=== PATIENT | female | born 1955 | race Caucasian/White ===

== ENCOUNTER 2019-09-28 07:05 | Day surgery (SDC) | payer OTHER, SELFPAY ==
[2019-09-26 14:53] VITALS: BMI 29.5
[2019-09-28] VITALS (7 sets, daily range): BP systolic 114–125; BP diastolic 62–78; PULSE 73–84; RESP 10–19; TEMP 36.1–36.7; O2SAT 93–98; BMI 29.5
[2019-09-28] MEDS: LACTATED RINGERS 1,000 ML 100 ML IV (08:13)
--- NOTE | 2019-09-28 09:01 | P.OP_ITS ---
Operative Date/Time/Diagnoses Date of procedure: 09/28/19 Time of procedure: 09:01 Pre-op diagnosis: Left foot hallux abductovalgus with bunion Post-op diagnosis: same Procedure & Clinicians Procedure: Left foot bunionectomy with distal metatarsal osteotomy Same procedure as scheduled: Yes Indications: Painful left foot bunion. Conservative measures failed to alleviate her pain and she wished to have surgical intervention this time. We spoke of the risks, potential complications, as well as expected outcomes. Consent was signed, no contraindication to the procedures at this time. Surgeon: Adalgisa Mckee Click Yes if Unassisted: Yes Anesthesia Type: General Operative Notes Closure Type: primary Specimen(s): none sent Prosthetic devices, grafts, tissues, transplants, or devices: [place] 3.5 mm partially-threaded 26mm screw Estimated Blood Loss (mL): 20 Blood products transfused: none Tourniquet time (min): 64 Procedure in detail: The patient was brought to the operating room and placed on the operating table in the supine position. The tourniquet was placed about the left ankle. Well padded appropriately aligned. After induction of general anesthesia the foot and ankle were prepped and draped in the usual aseptic manner. The tourniquet was inflated. Incision was made over the 1st metatarsal phalangeal joint. The incision was deepened through subcutaneous tissues being careful to identify and retract all vital neurovascular structures. All bleeders were cauterized and ligated as necessary. A medial capsulotomy was performed to the first metatarsophalangeal joint exposing the enlarged medial eminence. Of note the metatarsal head showed some linear wearing of cartilage surface medially, but the majority of this will have been resected with the medial eminence. The saw was used to resect the medial eminence. A saw was used to create a chevron-type osteotomy medial to lateral across the first metatarsal head/neck. The head was shifted and respositioned to reduce the intermetatarsal angle. Temporary fixation was used and using standard AO technique, a drill then 3.5mm cortical screw was placed across the osteotomy. I was not able to achieve proper bite and found that there was a small area of the bone near the marrow that enlarged that hole, and therefore not allowing purchase. Bone was clean, no necrosis, suspect weak area around the central marrow corridor. Next the guide wire was redirected and using the same technique, this fixation purchased well and was strong. Temporary fixation was then removed. This was reviewed on C-arm showing good placement and closure of the osteotomy. A saw was used to resect the medial first metatarsal shaft redundant overhang. The area was irrigated with copious amounts normal sterile saline. Once this was loaded it would appear that there did not need to be a phalangeal osteotomy and instead capsule balancing techniques with the soft tissue were appropriate. The great toe was placed in linear alignment and the medial first metata rsophalangeal joint capsule was resected and closed with Vicryl. The tourniquet was deflated and a prompt hyperemic response was seen in the foot. Deep and subcutaneous closure was closed performed with Vicryl and Nylon suture to the skin. The foot was dressed with a lightly compressive sterile dressing and splint in alignment. Patient was then placed in a postoperative shoe and transferred to PACU with vital signs stable. Complications: none Post-operative Condition: stable Disposition: PACU Plan for aftercare: Following a period of postoperative monitoring, the patient be discharged home on written and oral postoperative instructions including keeping the dressing dry and intact, avoiding ambulation on the foot, icing and elevating the foot when seated home. DVT prevention techniques have been reviewed. For the 1st postoperative visit the dressing will be changed and close to the 2- 3rd postoperative week we will likely remove the sutures, or at the discretion of the provider. She is directed no weight on the surgical foot approximately 4 weeks except for the midfoot for stability periodically, weight-bearing as tolerated following review and acceptable examination after that.
--- NOTE | 2019-09-28 09:01 | PM.PREOP ---
Pre-operative Note Interval Note History & Physical reviewed/Exam performed by Physician: Yes Changes to H&P: No
[2019-09-28] MEDS: CEFAZOLIN 2 GM/100 ML FROZ.PIGGY IV (09:15)
--- NOTE | 2019-09-28 09:46 | SUR.OPER ---
Supine on padded OR bed, head on pillow, arms secured on padded arm boards at <90 degrees abduction, legs uncrossed, safety belt at thigh, tape over blanket over lower legs.
--- NOTE | 2019-09-28 09:49 | SUR.OPER ---
Supine on padded OR bed, head on pillow, arms secured on padded arm boards at <90 degrees abduction, legs uncrossed, safety belt at waist, tape over blanket over lower right leg, left leg draped free with gel bump under left buttock.
[2019-09-28] MEDS: BUPIVACAINE 0.5% (PF) VIAL 30 ML INJ (10:04)
[2019-09-28] MEDS: OXYCODONE/ACETAMINOPHEN 5/325 TABLET 1 TAB PO (11:40)
--- NOTE | 2019-09-28 12:14 | SUR.PHASEII ---
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 Transferred stable on feet.
== END 2019-09-28 12:12 | disposition home or self-care (01) ==
PROVIDERS: Family Provider Registered Nurse Diabetes Educator; PCP Registered Nurse Diabetes Educator; Visit Provider Podiatrist
PROC: 0QBP0ZZ Excision of Left Metatarsal, Open Approach (ICD-10-PCS; CPT 28292; principal; 2019-09-28 08:45)
DX: M20.12 Hallux valgus (acquired), left foot (principal); G47.33 Obstructive sleep apnea (adult) (pediatric)
CPT/HCPCS: 28296; J0690; J1100; J1885; J2250; J2405; J2704; J3010

== ENCOUNTER → 2023-03-02 15:10 | Outpatient (CLI) | payer MEDICARE, OTHER, SELFPAY ==
--- NOTE | 2023-03-02 15:15 | DI.RAD.S_ITS ---
Bone Density Report Name: SENDY BRUMFIELD Age: 67 Sex: Female Ethnicity: White Date of : 1955 Indication: postmenopausal; screening for osteoporosis; Referring Provider: SAKINA CONTRERAS MD Study: Bone densitometry was performed. Exam Date: March 02, 2023 Accession number: [id number] Bone Density: Region BMD T-score Z-score Classification AP Spine(L1-L4) 1.038 -0.1 1.9 Normal Femoral Neck (Left) 0.763 -0.8 0.9 Normal Total Hip (Left) 0.914 -0.2 1.2 Normal Femoral Neck (Right) 0.751 -0.9 0.8 Normal Total Hip (Right) 0.876 -0.5 0.9 Normal Total Hip Mean 0.895 -0.4 1.1 Normal World Health Organization criteria for BMD impression classify patients as: Normal (T-score at or above -1.0), Osteopenia (T-score between -1.0 and -2.5), or Osteoporosis (T-score at or below -2.5). 10-year Fracture Risk: FRAX not reported because: All T-scores for Spine Total, Hip Total, Femoral Neck at or above -1.0 Impression: The patient has normal bone mass. Discussion: BONE DENSITY IS ABOVE THE MINIMUM DESIRABLE LEVEL AT ALL SKELETAL SITES TESTED. This patient's bone mineral density is above the minimum desirable level (T-score -1.0 or better) at all sites measured. The patient should follow a healthful lifestyle (good nutrition with adequate calcium and vitamin D, and appropriate weight-bearing exercise). Follow-Up: Consider repeating this study in 5 years or sooner if there is some new clinical indication. Reported by: THONY SANDRA M.D. on 03/02/2023 3:48:00 PM.
== END ==
PROVIDERS: Family Provider Registered Nurse Diabetes Educator; PCP Student in an Organized Health Care Education/Training Program; Referring Provider Student in an Organized Health Care Education/Training Program; Visit Provider Student in an Organized Health Care Education/Training Program
DX: Z78.0 Asymptomatic menopausal state (principal)
CPT/HCPCS: 77080

== ENCOUNTER → 2024-12-04 16:01 | Outpatient (CLI) | payer MEDICARE, OTHER, SELFPAY ==
--- NOTE | 2024-12-04 16:03 | DI.MRI.S_ITS ---
PROCEDURE: MR HIP RT WO CON INDICATIONS: PAIN IN RIGHT HIP TECHNIQUE: Noncontrast coronal T1 spin echo and STIR through the bony pelvis. Coronal and axial T2 fast spin echo with fat saturation, sagittal T1 spin echo, and oblique axial T2 fast spin echo with fat saturation through the hip. COMPARISON: None. FINDINGS: Image quality: Excellent. Bones and joints: There is moderate subchondral degenerative marrow edema and microcyst formation within the right superior femoral head as well as the right superior acetabulum. Moderate periarticular osteophyte formation at the right hip joint is present. No avascular necrosis of the femoral heads. The visualized lower lumbar spine appears normally aligned. Tendons and ligaments: The gluteus medius and minimus tendons appear intact, without associated muscle atrophy. Mild T2 signal elevation adjacent to the femoral insertion sites of the right gluteus medius and minimus tendons. The nearby proximal iliotibial band also appears intact. The iliopsoas tendon appears intact, without adjacent bursal fluid collections or evidence for impingement syndrome. The origin of the hamstring tendon is intact at the ischial tuberosity, as well as the associated sacrotuberous ligament. Moderate T2 signal elevation surrounding the ischial origin of the hamstring tendon. The straight and reflected heads of the rectus femoris muscle origin appear intact, as well as the conjoint tendon. The ligamentum teres appears intact where visualized. Labrum and cartilage: High-grade right hip joint articular cartilage loss. Diffuse degenerative tearing of the right hip labrum. The alpha angle of the femur is within normal limits at less than 55 degrees. Soft tissues: Visualized muscles demonstrate normal bulk and internal signal. Quadratus femoris muscle demonstrates no internal edema to suggest ischiofemoral impingement. The proximal sciatic neurovascular bundle appears normal adjacent to the hamstring tendons. No free pelvic fluid. Bladder wall thickness is normal. Genitourinary structures and bowel loops appear normal where visualized. IMPRESSION: 1. Severe right hip osteoarthritis associated with articular cartilage loss and degenerative tearing of the labrum. 2. Mild insertional tendinitis of the right gluteus medius and minimus tendons. 3. Right hamstring tendinopathy. Dictated by: Marilia Fleming M.D. on 12/05/2024 at 9:50 Approved by: Marilia Fleming M.D. on 12/05/2024 at 9:52
== END ==
PROVIDERS: Family Provider Registered Nurse Diabetes Educator; PCP Student in an Organized Health Care Education/Training Program; Referring Provider Family Medicine; Visit Provider Family Medicine
DX: S73.191A Other sprain of right hip, initial encounter (principal); M16.11 Unilateral primary osteoarthritis, right hip; M76.01 Gluteal tendinitis, right hip; M25.551 Pain in right hip
CPT/HCPCS: 73721